=== PATIENT | male | born 1935 | race African-American/Black ===

== ENCOUNTER 2022-04-04 12:57 | Emergency (ER) | payer BC, MEDICARE ==
[~2022-04-04] VITALS: Ht 170.2 cm; Wt 63.5 kg
[2022-04-04 13:25] VITALS: BP 138/58
--- NOTE | 2022-04-04 14:40 | NUR ---
16 FR lynn catheter inserted per sterile protocal. Immediate output 10 ML of urine, color yellow, clear. Patient discharged to home in stable condition. Written and verbal after care instructions given. Patient verbalizes understanding of instruction. Patient discharged to home in stable condition. Written and verbal after care instructions given. Patient verbalizes understanding of instruction.
== END 2022-04-04 14:42 | disposition home or self-care (01) ==
LOC: ER 13:04
DX: T83.028A Displacement of other urinary catheter, initial encounter (principal); G89.29 Other chronic pain

== ENCOUNTER 2022-04-11 09:41 | Emergency (ER) | payer BC, MEDICARE ==
[~2022-04-11] VITALS: Ht 170.2 cm; Wt 63.5 kg
--- NOTE | 2022-04-11 11:22 | NUR ---
Patient c/c was disconnected leg bag from his lynn catheter. Lynn catheter still in place and secured. Leg bag was replaced, clear yellow urine drainage noted. Dry pants given to patient. Two spare leg bags given to patient and daughter and instructions given on how to replace the leg bag. Patient discharged to home in stable condition. Written and verbal after care instructions given. Patient verbalizes understanding of instruction.
[2022-04-11 11:25] VITALS: BP 126/68
== END 2022-04-11 11:25 | disposition home or self-care (01) ==
LOC: ER 09:41
DX: T83.031A Leakage of indwelling urethral catheter, initial encounter (principal); G89.29 Other chronic pain; Z98.890 Other specified postprocedural states

== ENCOUNTER 2022-04-24 08:33 | Emergency (ER) | payer BC, OTHER ==
[~2022-04-24] VITALS: Ht 175.3 cm; Wt 65.8 kg
--- NOTE | 2022-04-24 08:45 | NUR ---
constipation x 2 days, noted blood in rectum. also c/o F/c discomfort
--- NOTE | 2022-04-24 09:30 | NUR ---
lynn catheter replaced to a new one. f16 dwelling
[2022-04-24 09:38] LABS: BASOPHILS # (AUTO) 0.1 K/uL (0.0-0.2); BASOPHILS % (AUTO) 0.5 % (0.0-2.0); EOSINOPHILS % (AUTO) 0.5 % (0.0-6.0); HEMATOCRIT 42 % (39-51); HEMOGLOBIN 13.4 g/dL (13.5-17.5); LYMPHOCYTES # (AUTO) 1.6 K/uL (0.8-4.8); MEAN CORPUSCULAR HGB CONC 32 g/dl (31.0-36.0); MEAN CORPUSCULAR VOLUME 87 fL (80-96); MONOCYTES # (AUTO) 0.8 K/uL (0.1-1.30); MONOCYTES % (AUTO) 6.6 % (2.0-12.0); NEUTROPHILS # (AUTO) 9.5 K/uL (1.8-8.9); NEUTROPHILS % (AUTO) 79.4 % (43.0-81.0); PLATELET COUNT (AUTO) 243 K/uL (150-450); RED BLOOD CELL COUNT(AUTO) 4.85 MIL/uL (4.5-6.0); WHITE BLOOD COUNT (AUTO) 11.9 K/uL (4.3-11.0)
[2022-04-24 09:54] LABS: CALCIUM, SERUM 9.1 mg/dL (8.5-10.1); POTASSIUM 4.2 mmol/L (3.5-5.1)
[2022-04-24 10:06] LABS: ALBUMIN 3.6 g/dL (3.4-5.0); BILIRUBIN,DIRECT 0.2 mg/dL (0.0-0.2); BILIRUBIN,TOTAL 0.7 mg/dL (0.2-1.0); TOTAL PROTEIN, SERUM 7.9 g/dL (6.4-8.2)
[2022-04-24 11:39] LABS: BILIRUBIN,URINE NEGATIVE (NEGATIVE); COLOR,URINE YELLOW (YELLOW); LEUKOCYTE ESTERASE ,URINE 3+ (NEGATIVE); NITRITE, URINE NEGATIVE (NEGATIVE); PROTEIN,URINE NEGATIVE (NEGATIVE); UGLUCOSE NEGATIVE (NEGATIVE); UROBILINOGEN,URINE 0.2 EU/dL (0.2)
[2022-04-24 12:01] LABS: BACTERIA,URINE Many /HPF (None Seen); SQUAMOUS EPITHELIAL CELL,UR Few /HPF (None Seen); WBC,URINE 21-50 /HPF (0-3)
[2022-04-24] MEDS ORDERED: CEFP200T14 PO ×2 (12:03→12:12)
--- NOTE | 2022-04-24 12:20 | NUR ---
lynn catheter leg bag provided.Patient discharged to home in stable condition. Written and verbal after care instructions given. Patient verbalizes understanding of instruction.
[2022-04-24 12:21] VITALS: BP 152/84
== END 2022-04-24 12:22 | disposition home or self-care (01) ==
LOC: ER 08:45
DX: N39.0 Urinary tract infection, site not specified (principal); K92.1 Melena; R33.9 Retention of urine, unspecified; Z46.6 Encounter for fitting and adjustment of urinary device; G89.29 Other chronic pain; Z79.899 Other long term (current) drug therapy
CPT/HCPCS: 36415; 80048-TC; 80076-TC; 81001; 83690-TC; 85025-TC; 87086-TC